=== PATIENT | female | born 1955 | race Caucasian/White ===

== ENCOUNTER → 2018-04-06 | Outpatient (CLI) | payer BC ==
[~2018-04-06] MED LIST: FENO145T2 PO; OMEP20TA39 PO; PROZ20CA11 PO; VITA200017 PO
--- NOTE | 2018-04-08 11:56 | RSPPFT ---
DATE OF PROCEDURE: 04/06/18 COMMENTS: Spirometry with FVC of 2.8 predicted 2.8, FEV1 of 2.2 predicted 2.2, FEV1/FVC ratio 79% predicted 83%. Lung volumes and DLCO are within the predicted range. IMPRESSION: On the basis of the above, patient has flow values, lung volumes and DLCO within the predicted range.
== END ==
LOC: HRSP 09:48
PROVIDERS: ATTEND Internal Medicine Cardiovascular Disease
DX: R06.02 Shortness of breath (principal)
CPT/HCPCS: 94060; 94726; 94729